=== PATIENT | female | born 1980 | race Two or more races ===

== ENCOUNTER 2023-09-22 10:47 | Emergency (ER) | payer OTHER, SELFPAY ==
[2023-09-22 11:11] VITALS: BP 186/87; PULSE 87; RESP 16; TEMP 36.6; O2SAT 100
--- NOTE | 2023-09-22 11:23 | ED.GENADULT ---
[facility] - General Adult General Chief complaint: Abdominal Pain Stated complaint: Pain pelvic area Time Seen by Provider: 09/22/23 20:09 Source: patient Mode of arrival: ambulatory History of Present Illness HPI narrative: This is a 43-year-old female who presents with persistent lower abdominal discomfort for 2 months. Patient states that her primary care physician has sent her for CT scan which did not have any acute findings and at that time she was tested for UTI and yeast infection but was negative. Her primary care doctor then referred her to her urologist who had performed a bladder sling procedure for her and at that time a pelvic exam was done without any acute findings and patient was referred for an ultrasound which was also negative. Patient has been finding strings and is worried that they are coming from the bladder sling. She denies any fevers or chills, she denies any nausea or vomiting and denies any diarrhea or constipation. Patient was also evaluated by her fusion operator and at that time there were no acute findings and she was referred back to her urologist who noted the patient had a urinary tract infection and she is currently on Macrobid. Related Data Allergies Allergy/AdvReac Type Severity Reaction Status Date / Time hydrocodone AdvReac Vomiting Verified 09/22/23 11:11 Review of Systems Review of Systems: Pertinent positives and negatives as stated in [facility] Past Medical History Source: nursing notes reviewed Social History Social History Advance Directives: No Advance Directives Information Provided: No Physical Exam ED Vital Signs: Vital Signs - 24 hr 09/22/23 11:11 09/22/23 20:00 Temperature 98 F 98.8 F Pulse Rate 87 100 Respiratory Rate 16 18 Blood Pressure 186/87 H 159/99 H Pulse Oximetry 100 100 Oxygen Delivery Method Room Air Room Air BMI result Body Mass Index 30.0 VITAL SIGNS: Reviewed. GENERAL: Well developed, well nourished, in no acute distress. HEAD: Normocephalic/atraumatic EYES: PERRLA, EOMI EARS: Ext canals without abnormality NOSE: Nares patent bilateral OROPHARYNX: no oral lesions noted, posterior pharynx clear NECK: Supple, no adenopathy LUNGS: Normal breath sounds. No adventitious sounds or accessory muscle use. SpO2<100> CARDIOVASCULAR: Regular rate and rhythm without noted murmurs ABDOMEN: Soft, non-tender, non-distended with bowel sounds. MUSCULOSKELETAL: No tenderness, deformities, or effusions noted on gross inspection. EXTREMITIES: No cyanosis, clubbing or edema. SKIN: Inspection of the skin reveals no rashes NEUROLOGIC: Alert and oriented x 4. Strength and sensation to light touch were grossly intact x 4. Course Course Course Narrative: This is an RME: Additional HPI, ROS, PE not included below will be deferred to primary provider. This is a 43-year-old female presenting to the emergency department for evaluation of lower abdominal pain for the last 2 months. She states that the pain has been constant. She states that she feels like there is something blocking her vagina, she has a history of a bladder prolapse with bladder sling. She has had CT scans and ultrasounds performed at [facility] but she has not had any answers. She endorses chills, otherwise no nausea, vomiting, diarrhea. She also shows me a piece of string that she found in her underwear, which she is concerned about. She has already been seen by her OBGYN. No rectal itching. Likely will need a pelvic examination for evaluation of ?prolapse Plan: Labs, UA, further ER evaluation needed Medical Decision Making Medical Decision Making [facility] Narrative: 43-year-old female with history and clinical presentation, DDX: Chronic pain may be due to back pain, will rule out infectious etiology but at this time I do not think that further imaging studies are warranted. I reviewed all investigations and hematology indices are grossly within normal limits without leukocytosis or left shift, there is no anemia or thrombocytopenia. Chemistry indices are grossly within normal limits without any demonstrated RYAN and no electrolyte or liver enzyme derangements. Urinalysis demonstrates very mild presence of blood without evidence to suggest UTI. Patient instructed to continue antibiotics as prescribed. My interpretation is that there is a possibility that this is a chronic pain that is radiating from her back and patient does describe a very demanding job requiring a significant amount of walking. She is otherwise stable and will be discharged and instructed to follow-up with her primary care doctor and her urologist. Differential Diagnosis Differential Diagnoses: The differential diagnosis associated with the presentation includes Please see the discussion above Admission/Observation Consideration of admission/observation: Escalation of care including admission/observation considered Please see the discussion above Lab Data [facility] Lab Attestation statement: I reviewed the patient's lab results. Please see the discussion above 09/22/23 12:30 09/22/23 12:30 Labs: Lab Results 09/22/23 09/22/23 Range/Units 12:30 20: WBC 10.2 (4.8-10.8) X10*3/uL RBC 4.23 (4.20-5.50) X10*6/uL Hgb 12.9 (12.0-16.0) g/dl Hct 38.6 (37.0-47.0) % MCV 91.3 (80.0-98.0) fL MCH 30.5 (27.0-33.0) pg MCHC 33.4 (31.0-35.0) g/dl RDW 12.6 (11.0-16.0) % Plt Count 361 (160-400) X10*3/uL MPV 9.1 L (9.4-12.3) fL Immature Gran % (Auto) 0.3 (0.0-0.4) % Neut % (Auto) 56.6 (45-73) % Lymph % (Auto) 34.6 (20-40) % [place] % (Auto) 5.4 (2-11) % Eos % (Auto) 2.5 (0-4) % Baso % (Auto) 0.6 (0-2) % Lymph # (Auto) 3.5 (1.2-4.9) X10*3/uL [place] # (Auto) 0.6 (0.1-1.2) X10*3/uL Eos # (Auto) 0.3 (0.0-0.4) X10*3/uL Baso # (Auto) 0.1 (0.0-0.2) X10*3/uL Abs Immat Gran (auto) 0.03 (0.00-0.03) X10*3/uL Absolute Neuts (auto) 5.8 (2.0-8.3) x10*3/uL Absolute Nucleated RBC 0.000 (0.0-0.012) X10*3/uL Nucleated RBC % (auto) 0.0 (0.0-0.2) /100WBC Sodium 140 (135-145) mmol/L Potassium 3.4 (3.3-5.1) mmol/L Chloride 106 (96-108) mmol/L Carbon Dioxide 22 (22-29) mmol/L Anion Gap 15 (12-20) BUN 14 (9-16) mg/dL Creatinine 0.80 (0.5-1.4) mg/dL Estim Creat Clear Calc 103.8 Estimated GFR > 60 Random Glucose 94 (60-115) mg/dL Calcium 10.1 (8.4-10.2) mg/dL Total Bilirubin 0.3 (0.0-1.0) mg/dL Direct Bilirubin 0.1 (0.0-0.5) mg/dL AST 21 (5-31) U/L ALT 24 (0-31) U/L Alkaline Phosphatase 97 (39-117) U/L Total Protein 8.9 H (6.5-8.0) g/dL Albumin 5.1 H (3.5-5.0) g/dL Lipase 37 (8-78) U/L Beta HCG, Quant < 2 mIU/mL Urine Color Yellow Urine Appearance Clear Urine pH 6.0 (5.0-9.0) Ur Specific [place] 1.020 (1.005-1.025) Urine Protein Negative (Neg-Trace) mg/dL Urine Glucose (UA) Negative (Negative) mg/dL Urine Ketones Negative (Negative) mg/dL Urine Blood Trace H (Negative) Urine Nitrite Negative (Negative) Ur Leukocyte Esterase Negative (Negative) Urine RBC 3-5 H (0-2) /HPF Urine WBC 0-5 (0-5) /HPF Ur Squamous Epith Cells 0-2 (0-2) /HPF Urine Bacteria Trace (None Seen) Hyaline Casts 0-2 (0-2) /LPF Discharge Plan Discharge Clinical Impression: Chronic abdominal pain Patient Disposition: Home, Self-Care Instructions: Abdominal Pain (ED), Chronic Pain (ED) Additional Instructions: 1. Resume all home medications and complete the entire course of antibiotics as prescribed. 2. Recommend follow-up with your primary care doctor. Return to the ER if you experience any worsening of your symptoms or new symptoms such as fever, chills, nausea, vomiting. Referrals: Vimal Alvarez MD [Primary Care Provider] -
[2023-09-22 12:39] LABS: MANUAL DIFF FLAG NO
[2023-09-22 12:43] LABS: Basophils Absolute Auto 0.1 X10*3/uL (0.0-0.2); Basophils Percent Auto 0.6 % (0-2); Eosinophils Absolute Auto 0.3 X10*3/uL (0.0-0.4); Eosinophils Percent Auto 2.5 % (0-4); Hematocrit 38.6 % (37.0-47.0); Hemoglobin 12.9 g/dl (12.0-16.0); Imm Gran Abs Auto 0.03 X10*3/uL (0.00-0.03); Imm Gran Pct Auto 0.3 % (0.0-0.4); Lymphocytes Absolute Auto 3.5 X10*3/uL (1.2-4.9); Lymphocytes Percent Auto 34.6 % (20-40); Mean Corpuscular HGB Conc 33.4 g/dl (31.0-35.0); Mean Corpuscular Hemoglobin 30.5 pg (27.0-33.0); Mean Corpuscular Volume 91.3 fL (80.0-98.0); Mean Platelet Volume 9.1 fL (9.4-12.3); Monocytes Absolute Auto 0.6 X10*3/uL (0.1-1.2); Monocytes Percent Auto 5.4 % (2-11); Neutrophils Absolute Auto 5.8 x10*3/uL (2.0-8.3); Neutrophils Percent Auto 56.6 % (45-73); Platelet Count 361 X10*3/uL (160-400); Red Blood Count 4.23 X10*6/uL (4.20-5.50); Red Cell Distribution Width 12.6 % (11.0-16.0); White Blood Count 10.2 X10*3/uL (4.8-10.8)
[2023-09-22 13:05] LABS: Alanine Aminotransferase 24 U/L (0-31); Albumin Level 5.1 g/dL (3.5-5.0); Alkaline Phosphatase 97 U/L (39-117); Anion Gap 15 (12-20); Aspartate Amino Transferase 21 U/L (5-31); Bilirubin Direct 0.1 mg/dL (0.0-0.5); Bilirubin Total 0.3 mg/dL (0.0-1.0); Blood Urea Nitrogen 14 mg/dL (9-16); Calcium 10.1 mg/dL (8.4-10.2); Carbon Dioxide 22 mmol/L (22-29); Chloride 106 mmol/L (96-108); Creatinine Clr Calc Pharmacy 103.8; Estimated Glomerular Filt Rate > 60; Glucose Random 94 mg/dL (60-115); Lipase 37 U/L (8-78); Potassium 3.4 mmol/L (3.3-5.1); Sodium 140 mmol/L (135-145); Total Protein 8.9 g/dL (6.5-8.0)
[2023-09-22 13:09] LABS: HCG Quantitative < 2 mIU/mL
[2023-09-22 20:00] VITALS: BP 159/99; PULSE 100; RESP 18; TEMP 37.1; O2SAT 100
[2023-09-22 20:32] LABS: Appearance Urine Clear; Color Urine Yellow; Glucose Urine UA Negative (Negative); Leukocyte Esterase Urine Negative (Negative); Nitrite Urine Negative (Negative); UMIC TRIGGER UACC YES; Urine Blood Trace (Negative); Urine Ketones Negative (Negative); Urine Protein Negative (Neg-Trace)
[2023-09-22 20:40] LABS: Bacteria Urine Trace (None Seen); Hyaline Casts Urine 0-2 /LPF (0-2); Squamous Epithelial Cell Urine 0-2 /HPF (0-2); WBC Urine 0-5 /HPF (0-5)
--- OUTSIDE RECORDS SUMMARY | 2023-09-22 21:32 | XMS_ITS | Continuity of Care Document ---
Author Name Unknown Organization [facility] [facility] [facility] Address [address], [address] [place] [address]- Care Team Providers Care J2Ee Application Developer Name Role Phone Audra March Primary Care Physician [place] [facility] [place]s): 06/18/21 - 07/18/21 [facility] [address], [address] [place] [address]- Allergies, Adverse Reactions, Alerts Substance Reaction Severity Status Percocet nausea/ vomiting Active Vicodin nausea/ vomiting Active Medications citalopram 10 mg oral tablet 10 mg, 1, tablet, By Mouth, Daily at bedtime, Takes 5 days before menses then an additional 6 days,# 30 tablet, Refills 0, Maintenance, 05/26/21 19:12:00 EDT, Partial fill upon patient request if the prescription is for a schedule II opioid drug. Start Date: 05/26/21 Status: Ordered Unisom 25 mg oral tablet 1 tablet = 25 mg, By Mouth, Daily at bedtime, # 16 tablet, 0 Refills, Maintenance, 05/26/21 19:13:00 EDT, Tablet, Partial fill upon patient request if the prescription is for a schedule II opioid drug. Start Date: 05/26/21 Status: Ordered Social History Social History Type Response Smoking Status Former smoker, quit more than 30 days ago entered on: 01/27/21 Sex
--- OUTSIDE RECORDS SUMMARY | 2023-09-22 21:32 | XMS_ITS | Continuity of Care Document ---
Author Name Unknown Organization [facility] ter Address [address] [place] [address]- Care Team Providers Care Finished Garment Inspector Name Role Phone Not on Staff, PCP Primary Care Physician Unavail able Encounter [facility] Date(s): 04/20/20 - 04/20/[address] [address]- [facility] Encounter Diagnosis COVID-19(Final) - 04/20/20 Discharge Disposition: A-D/C Home Attending Physician: Sowmya Corey DO Admitting Physician: Sowmya Corey DO Referring Physician: Not on Staff, Referring MD Allergies, Adverse Reactions, Alerts Substance Reaction Severity Status penicillin Active Percocet Active Vicodin Active Results Radiology Reports * Exam Date Time Procedure Performing Provider Status 04/20/20 8:54 PM Chest Portable Willa Escobar; Keanu (Ve rified) Notes: (Chest Portable) Reason For Exam: Shortness of Breath RESULT: Chest Portable Chest Portable AP upright at 2039 hours Reason: Shortness of Breath; Clinical Question(s): Pneumonia; Hx of Present Illness: pt reports 2 weeks of intermittent GARSIA, chest pain, SOB and loose stool. COMPARISON: None. FINDINGS: LINES AND TUBES: None. LUNGS AND PLEURA: Clear lungs. Normal pulmonary vascularity. No pleural effusion. No pneumothorax. HEART, MEDIASTINUM AND TOBY: Heart is normal in size. Normal mediastinal and hilar contour. BONES AND SOFT TISSUES: No acute abnormality. IMPRESSION: No acute abnormality. WSN: [id number] Ordering Physician: Sowmya Corey Dictated By: Mat Anand DO Dictated Date/Time: 04/20/20 9:02 pm Reviewed By: Mat Anand DO Signed By: Mat Anand DO Signed Date/Time: 04/20/20 9:02 pm Transcribed By: JODIE Transcribed Date/Time: 04/20/20 9:02 pm Vital Signs Most recent to oldest [Reference Range]: 1 2 Oxygen Saturation [94-100 %] 99 % 1 (04/20/20 9:47 PM) 99 % (04/20/20 8:18 PM) Pulse Rate [55-90 bpm] 78 bpm (04/20/20 9:47 PM) 83 bpm (04/20/20 8:18 PM) Blood Pressure [90-138/55-84 mm Hg] 148/ 99mm Hg *H* (04/20/20 8:18 PM) Respiratory Rate [16-30 br/min] 18 br/mi n (04/20/20 9:47 PM) 18 br/min (04/20/20 8:18 PM) Temperature [96.8-100.4 DegF] 98.6 DegF (04/20/20 8:18 PM) Mode of Delivery (Oxygen) Room air (04/20/20 9:47 PM) Room air (04/20/20 8:18 PM) Blood pressure sites Arm, left (04/20/20 8:18 PM) Temperature Route Oral (04/20/20 8:18 PM) 1Result Comment: with ambulation trial
--- OUTSIDE RECORDS SUMMARY | 2023-09-22 21:32 | XMS_ITS | Continuity of Care Document ---
Author Name Unknown Organization [email or web address] Address [address], [address] [place] [address]- Care Team Providers Care Head Of Sales Promotion Name Role Phone Audra March Primary Care Physician En[place] [facility] [place](s): 08/02/23 - 09/01/23 [email or web address] [address], [address] [place] [address]- Attending Physician: Kris Gonsalves Admitting Physician: Kris Gonsalves Referring Physician: AdmtrKris Allergies, Adverse Reactions, Alerts Substance Reaction Severity Status Vicodin nausea/ vomiting Active Percocet nausea/ vomiting Active Medications citalopram 10 mg oral tablet 10 mg, 1, tablet, By Mouth, Daily at bedtime, Takes 5 days before menses then an additional 6 days,# 30 tablet, Refills 0, Maintenance, 05/26/21 19:12:00 EDT, Partial fill upon patient request if the prescription is for a schedule II opioid drug. Start Date: 05/26/21 Status: Ordered ondansetron 4 mg oral tablet, disintegrating 1 tablet = 4 mg, By Mouth, Every 8 hours, PRN as needed for nausea/vomiting, # 10 tablet, 0 Refills, Maintenance, 08/25/22 4:18:00 EST, DIS Tablet, [id number], Partial fill upon patient request, 173, cm, 06/23/21 11:16:00 EDT, Height, 90, kg,... Start Date: 08/25/22 Status: Ordered Unisom 25 mg oral tablet [...] 30 days ago entered on: 01/27/21 Sex Patient Care team information Care Team Personnel Name: Audra March Position: S Associate Professional Member Role: PCP Address: Address: [address] [place] [address], [address] [place] [address]- Care Team Related Persons Name: TASH KEY Address: [place] [address] Name: ARELY KEY Address: home [address] [place] [address]
--- OUTSIDE RECORDS SUMMARY | 2023-09-22 21:32 | XMS_ITS | Continuity of Care Document ---
Author Name Unknown Organization [facility] Address [address], [address] [place] [address]- Care Team Providers Care Clinical Assoc Name Role Phone Audra March Primary Care Physician [place] [facility] [place] 08/27/20 - 11/05/20 [facility] [address], [address] [place] [address]- Attending Physician: La Trinh MD Admitting Physician: La Trinh MD Referring Physician: Audra March Allergies, Adverse Reactions, Alerts Substance Reaction Severity Status penicillin Active Percocet Active Vicodin Active
--- OUTSIDE RECORDS SUMMARY | 2023-09-22 21:32 | XMS_ITS | Continuity of Care Document ---
Author Name Unknown Organization [facility] Address [address], [address] [place] [address]- Care Team Providers Care Finish Mill Operator Name Role Phone Audra March Primary Care Physician Encounter [facility] [place] Date(s): 06/11/21 - 07/11/21 [facility] [address], [address] [place] [address]- Allergies, Adverse Reactions, Alerts Substance Reaction Severity [...]
--- OUTSIDE RECORDS SUMMARY | 2023-09-22 21:32 | XMS_ITS | Continuity of Care Document ---
Author Name Unknown Organization [facility] [employer] Address [address], [address] [place] [address]- Care Team Providers Care Commissary Assistant Name Role Phone Audra March Primary Care Physician [id number] Date(s[facility] 09/16/21 - 01/14/22 [facility] [address], [address] [place] [address]- Attending Physician: Brittany Gutiérrez MD Admitting Physician: Brittany Gutiérrez MD Referring Physician: Audra March Allergies, Adverse [...]
--- OUTSIDE RECORDS SUMMARY | 2023-09-22 21:32 | XMS_ITS | Continuity of Care Document ---
Author Name Unknown Organization [facility] Address [address], [address] [place] [address]- Care Team Providers Care Professor Of Theology Name Role Phone Audra March Primary Care Physician [phone] Encounter [facility] [place] Date(s): 10/06/20 - 11/05/20 [facility] [employer] [address], [address] [place], [place] [address] Attending Physician: AdmKris birch Admitting Physician: Admtr, Ar8 Referring Physician: Admtr, Ar8 Allergies, Adverse Reactions, Alerts Substance Reaction Severity Status penicillin Active Percocet Active Vicodin Active
--- OUTSIDE RECORDS SUMMARY | 2023-09-22 21:33 | XMS_ITS | Continuity of Care Document ---
Author Name Unknown Organization [facility] [facility] Address [address], [address] [place] [address]- Care Team Providers Care Typing Checker Name Role Phone Audra March Primary Care Physician [id number] Date(s): 12/15/21 - 01/14/22 [facility] [address], [address] [place], [place] [address] Attending Physician: Kris Gonsalves Admitting Physician: AdmKris birch Referring Physician: AdmtrKris Allergies, Adverse Reactions, Alerts [...]
--- OUTSIDE RECORDS SUMMARY | 2023-09-22 21:33 | XMS_ITS | Continuity of Care Document ---
Author Name Unknown Organization [facility] Address [address], [address] [place] [address]- Care Team Providers Care Brake [address] Freight Name Role Phone Audra March Primary Care Physician [place] [facility] [place] 07[place]23 - 08/28/23 [facility] [address], [address] [place], [place] [address] Allergies, Adverse Reactions, Alerts Substance Reaction Severity [...] Refills, Maintenance, 08/25/22 4:18:00 EST, DIS Tablet, [id number], Partial fill upon patient request, 173, [...] Associate Professional Member Role: PCP Address: Address: [address] [place] [address], [address] [place] [address]- Care Team Related Persons Name: TASH KEY Address: [place] [address] Name: ARELY KEY Address: home [address] [place] [address]
--- OUTSIDE RECORDS SUMMARY | 2023-09-22 21:33 | XMS_ITS | Continuity of Care Document ---
Author Name Unknown Organization [facility] ter Address [address] [place] [address]- Care Team Providers Care Timber Setter Name Role Phone Audra March Primary Care Physician [phone] Encounter [facility] Date(s): 08/24/22 - 08/25/[address] [address]- Encounter Diagnosis Headache(Final) - 08/25/22 Discharge Disposition: A-D/C Home Attending Physician: Scott Gomez MD Admitting Physician: Scott Gomez MD Referring Physician: Not on Staff, Referring MD [...] opioid drug. Start Date: 05/26/21 Status: Ordered meclizine 25 mg oral tablet 1 tablet = 25 mg, By Mouth, 3 times a day, PRN for dizziness, for 14 days, # 20 tablet, 0 Refills, Acute 09/08/22 4:18:00 EST, 08/25/22 4:18:00 EST, Tablet, [id number], Partial fill upon patient request if the prescription is for a schedule II... Start Date: 08/25/22 Stop Date: 09/08/22 Status: Ordered ondansetron 4 mg oral tablet, [...] opioid drug. Start Date: 05/26/21 Status: Ordered Results Radiology Reports * Exam Date Time Procedure Performing Provider Status 08/25/22 3:[address] Head/Brain W/O Contrast Stupak , Ol eg; Auth (Verified) Notes: (CT Head/Brain W/O Contrast) Reason For Exam: worsening R sided headaches, dizziness;Headache(s) RESULT: CT Head/Brain W/O Contrast CT Head/Brain W/O Contrast INDICATION: Headache. TECHNIQUE: Noncontrast head CT using axial technique and reconstructed in axial and coronal planes.Iterative reconstruction techniques are used to optimize dose and image quality. CTDIvol Head: 45.90 mGy, DLP Head: 772 mGy*cm. COMPARISON: None. FINDINGS: Accounting Administrator view findings, lines and tubes: None. BRAIN AND EXTRA-AXIAL SPACES: No parenchymal hemorrhage, midline shift, or mass effect. Becker-white matter differentiation is wellpreserved. No acute infarct. Ventricles, sulci, and basilar cisterns are normal. No white matter lesions. No subarachnoid hemorrhage. No subdural or epidural collection. CALVARIUM, SKULL BASE, AND SOFT TISSUES: No fractures or suspicious bony lesions. The paranasal sinuses and mastoid air cells are clear. Visualized orbits and globes are intact. The extracranial soft tissues are unremarkable. IMPRESSION: No acute intracranial abnormality. I have personally reviewed the images and I agree with this report. WSN: [id number] Ordering Physician: Savannah Liao Dictated By: Gunnar Morales MD Dictated Date/Time: 08/25/22 7:13 am Reviewed By: Vince Martínez MD Signed By: Vince Martínez MD Signed Date/Time: 08/25/22 7:18 am Transcribed By: JODIE Transcribed Date/Time: 08/25/22 3:17 am Vital Signs Most recent to oldest [Reference Range]: 1 2 3 Oxygen Saturation [94-100 %] 100 % (08/25/22 3:29 AM) 100 % (08/25/22 12:04 AM) 100 % (08/24/22 9:44 PM) Pulse Rate [55-90 bpm] 61 bpm (08/25/22 3:29 AM) 65 bpm (08/25/22 12:04 AM) 70 bpm (08/24/22 9:44 PM) Blood Pressure [90-138/55-84 mm Hg] 137/76mm Hg (08/25/22 3:29 AM) 138/80mm Hg (08/25/22 12:04 AM) 150/98mm Hg *H* (08/24/22 9:44 PM) Respiratory Rate [16-30 br/min] 16 br/min (08/25/22 3:29 AM) 22 br/min (08/24/22 9:44 PM) Temperature [96.8-100.4 DegF] 98.3 DegF (08/25/22 3:29 AM) 97.8 DegF (08/25/22 12:04 AM) 98.4 DegF (08/24/22 9:44 PM) Mode of Delivery (Oxygen) Room air (08/25/22 3:29 AM) Room air (08/25/22 12:04 AM) Room air (08/24/22 9:44 PM) Blood pressure sites Arm, right (08/25/22 3:29 AM) Arm, right (08/25/22 12:04 AM) Arm, right (08/24/22 9:44 PM) Temperature Route Oral (08/25/22 3:29 AM) Oral (08/25/22 12:04 AM) Oral (08/24/22 9:44 PM) Social History Social History Type Response Smoking Status Former smoker, quit more than 30 days ago entered on: 01/27/21 Sex EKG study * Event Display: ECG 12-Lead Authored Date: Please click on pdf link to open report * Event Display: ECG 12-Lead Authored Date: Ventricular Rate: 61 BPM Atrial Rate: 61 BPM P-R Interval: 146 ms QRS Duration: 84 ms Q-T Interval: 426 ms QTC Calculation(Bazett): 428 ms P Palco: 31 degrees R Palco: 52 degrees T Palco: 34 degrees Normal sinus rhythm Normal ECG When compared with ECG of 24-AUG-2022 22:18, MANUAL COMPARISON REQUIRED, DATA IS UNCONFIRMED Confirmed by FOX HARTLEY MD ([id number]) on 08/25/2022 4:02:00 PM [place]: FOX HARTLEY MD * Event Display: EKG Authored Date: [id number] * Event Display: ECG 12-Lead Authored Date: [id number] Please click on pdf link to open report * Event Display: ECG 12-Lead Authored Date: [id number] Ventricular Rate: 66 BPM Atrial Rate: 66 BPM P-R Interval: 140 ms QRS Duration: 78 ms Q-T Interval: 398 ms QTC Calculation(Bazett): 417 ms P Palco: 24 degrees R Palco: 40 degrees T Palco: 35 degrees Normal sinus rhythm Normal ECG When compared with ECG of 20-APR-2020 20:39, No significant change was found Confirmed by IRIS ULLOA MD ([id number]) on 08/25/2022 10:06:19 AM [place]: IRIS ULLOA MD Note * Savannah Laio DO: OMAR Event Display: Patient Education Leaflets Authored Date: [id number] Dizziness (Uncertain Cause) ?? [id number] Dizziness (Uncertain Cause) Dizziness is a common symptom. It may be described as lightheadedness, spinning, or feeling like you are going to faint. Dizziness can have many causes. Tell the healthcare provider about: ??? All medicines you take, including prescription, [id number], herbs, and supplements ??? Any other symptoms you have ??? Any health problems you are being treated for ??? Any past major health problems you've had, such as a heart attack, balance issues, hearing problems, or blood pressure problems ??? Anything that causes the dizziness to get worse or better Today's exam did not show an exact cause for your dizziness .??Other tests may be needed. Follow upwith your healthcare provider. Home care ??? Dizziness that occurs with sudden standing may be a sign of mild dehydration. Drink extra fluids for the next few days. ??? If you recently started a new medicine, stopped a medicine, or had the dose of a current medicine changed,??talk with the prescribing healthcare provider. Your medicine plan may need adjustment. ??? If dizziness lasts more than a few seconds, sit or lie down until it passes. This may help prevent injury in case you pass out. Get up slowly when you feel better. ??? Don't drive or use power tools or dangerous equipment until you have had no dizziness for at least 48 hours. ?? Follow-up care Follow up with your healthcare provider for further evaluation in the next 7 days, or as advised. ?? When to get medical advice Call your healthcare provider for any of the following: ??? Worsening of symptoms or new symptoms ??? Repeated vomiting ??? Headache ??? Vision or hearing changes Call 911 Call 911, right away if any of these occur: ??? Chest, arm, neck, back, or jaw pain ??? Weakness ofan arm or leg or one side of the face ??? Vomit or stool that's black or red ??? Shortness of breath ??? Feeling that your heart is fluttering or beating fast or hard (palpitations) ??? Passing out or seizure ??? Trouble walking or speaking ?? Last Reviewed Date: 2021 ?? [id number] [employer]. All rights reserved. This information is not intended as a substitute for professional medical care. Always follow your healthcare professional's instructions. ?? * Savannah Liao DO: PERFORM Event Display: Patient Education Leaflets Authored Date: [id number] Unspecified Headache ?? [id number] Headache, Unspecified A number of things can cause headaches. The cause of your headache isn???t clear. But it doesn???t seem to be a sign of any serious illness. Headache affects almost everyone at some time. It's the most common reason people miss days from work or school. You could have a tension headache or a migraine headache. Stress can cause a tension headache. This can happen if you tense the muscles of your shoulders, neck, and scalp without knowing it. If this stress lasts long enough, you may develop a tension headache. It's not clear why migraines occur, but certain things called triggers can raise the risk of having a migraine attack. Migraine triggers may include emotional stress or depression, or by hormone changes during the menstrual cycle. Other triggers include control pills and other medicines, alcohol or caffeine, foods with tyramine such as aged cheese or wine, eyestrain, weather changes, missed meals, and lack of sleep or oversleeping. Other causes of headache include: ??? Viral illness with high fever ??? Head injury with concussion ??? Sinus, ear, or throat infection ??? Dental pain and jaw joint (TMJ) pain More serious but less common causes of headache include stroke, brain hemorrhage, brain tumor, meningitis, and encephalitis. Home care Follow these tips when taking care of yourself at home: ??? Don???t drive yourself home if you were given pain medicine for your headache. Instead, have someone else drive you home. Try to sleep when you get home. You should feel much better when you wakeup. ??? Apply heat to the back of your neck to ease a neck muscle spasm. Take care of a migraine headache by putting an ice pack on your forehead or at the base of your skull. ??? If you have nausea or vomiting, eat a light diet until your headache eases. ??? If you have a migraine headache, use sunglasses when in the daylight or around bright indoor lighting until your symptoms get better. Bright glaring light can make this type of headache worse. Follow-up care Follow up with your healthcare provider, or as advised. Talk with your provider if you have frequent headaches. They can help figure out a treatment plan. By knowing the earliest signs of headache, and starting treatment right away, you may be able to stop the pain yourself. When to seek medical advice Call your healthcare provider right away??if any of these occur: ??? Your head pain suddenly gets worse after sexual intercourse or strenuous activity ??? Your head pain doesn???t get better within 24 hours ??? You aren???t able to keep liquids down (repeated vomiting) ??? Fever of 100.4??F (38??C)or higher, or as directed by your healthcare provider ??? Stiff neck ??? Extreme drowsiness, confusion, or fainting ??? Dizziness or dizziness with spinning sensation (vertigo) ??? Weakness in an armor leg or one side of your face ??? You have trouble talking or seeing Last Reviewed Date: 2020 ?? 5943-1926 [employer]. All rights reserved. This information is not intended as a substitute for professional medical care. Always follow your healthcare professional's instructions. ?? CT Head WO contrast * BHSPowerscribe , CIS S: TRANSCRIBE Gunnar Morales MD: SIGN Vince Martínez MD: VERIFY Event Display: Result: Authored Date: [id number] CT Head/Brain W/O Contrast INDICATION: Headache. TECHNIQUE: Noncontrast head CT using axial technique and reconstructed in axial and coronal planes.Iterative reconstruction techniques are used to optimize dose and image quality. CTDIvol Head: 45.90 mGy, DLP Head: 772 mGy*cm. COMPARISON: None. FINDINGS: Accounting Administrator view findings, lines and tubes: None. BRAIN AND EXTRA-AXIAL SPACES: No parenchymal hemorrhage, midline shift, or mass effect. Becker-white matter differentiation is wellpreserved. No acute infarct. Ventricles, sulci, and basilar cisterns are normal. No white matter lesions. No subarachnoid hemorrhage. No subdural or epidural collection. CALVARIUM, SKULL BASE, AND SOFT TISSUES: No fractures or suspicious bony lesions. The paranasal sinuses and mastoid air cells are clear. Visualized orbits and globes are intact. The extracranial soft tissues are unremarkable. IMPRESSION: No acute intracranial abnormality. I have personally reviewed the images and I agree with this report. WSN: [id number] Ordering Physician: Savannah Liao Dictated By: Gunnar Morales MD Dictated Date/Time: 08/25/22 7:13 am Reviewed By: Vince Martínez MD Signed By: Vince Martínez MD Signed Date/Time: 08/25/22 7:18 am Transcribed By: JODIE Transcribed Date/Time: 08/25/22 3:17 am Patient Care team information Care Team Personnel Name: Audra March Position: S Associate Professional Member Role: PCP Address: Address: [address] [place] [address], [address] [place] [address]- Name: Savannah Liao DO Position: [facility] Resident Member Role: ED Resident Address: Address: [address] [place] [address]- Name: Kim Garrett Position: [facility] ED RN W/OE and Tasks Member Role: Patient Care Provider Name: Werner Howell Position: [facility] ED TA [facility] Member Role: Supervisor Electrolytic Tinning Name: Scott Gomez MD Position: [facility] Resident Member Role: Admitting Physician Address: Address: [address] [place] [address]- Care Team Related Persons Name: TASH KEY Address: [place] [address] Name: ARELY KEY Address: home [address] [place] [address]
--- OUTSIDE RECORDS SUMMARY | 2023-09-22 21:33 | XMS_ITS | Continuity of Care Document ---
Author Name Unknown [facility] Address [address], [address] [place] [address]- Care Team Providers Care Group Activities Aide Name Role Phone Audra March Primary Care Physician Encounter [facility] Date(s): 07/21/20 - 09/27/20 [facility] [address] [place] [address]- Attending Physician: Brittany Gutiérrez MD Admitting Physician: Brittany Gutiérrez MD Referring Physician: Audra March Allergies, Adverse Reactions, Alerts Substance Reaction Severity Status penicillin Active Percocet Active Vicodin Active
--- OUTSIDE RECORDS SUMMARY | 2023-09-22 21:33 | XMS_ITS | Continuity of Care Document ---
Author Name Unknown Organization [facility] ter Address [address] [place] [address]- Care Team Providers Care 911 Emergency Dispatcher Name Role Phone Audra March Primary Care Physician [phone] Encounter [facility] Date(s): 06/08/21 - 06/08/[address] [address] Discharge Disposition: A-D/C Home Attending Physician: Brittany Gutiérrez MD Admitting Physician: Brittany Gutiérrez MD Referring Physician: Brittany Gutiérrez MD Allergies, Adverse Reactions, Alerts Substance Reaction [...] opioid drug. Start Date: 05/26/21 Status: Ordered Dilaudid 2 mg oral tablet 1 tablet = 2 mg, By Mouth, Every 4 hours, PRN as needed for pain, # 6 tablet, 0 Refills, Acute 07/10/21 8:13:00 EDT, 06/08/21 8:13:00 EDT, Tablet, [id number], Partial fill upon patient request if the prescription is for a schedule II opioid . Start Date: 06/08/21 Stop Date: 07/10/21 Status: Ordered ibuprofen 600 mg oral tablet 600 mg, 1, tablet, By Mouth, 4 times a day, PRN, # 40 tablet, Refills 0, Tot. Refills 0, Acute 07/10/21 8:14:00 EDT, for pain, 06/08/21 8:13:00 EDT, Route to Pharmacy Electronically, [id number], Partial fill upon patient request if the prescri... Start Date: 06/08/21 Stop Date: 07/10/21 Status: Ordered Tylenol 325 mg oral capsule 2 capsule = 650 mg, By Mouth, Every 4 hours, PRN as needed for pain, not to exceed 4000 mg/day, # 90 capsule, 0 Refills, Acute 07/10/21 8:14:00 EDT, 06/08/21 8:13:00 EDT, Capsule, [id number],Partial fill upon patient request if the prescripti... Start Date: 06/08/21 Stop Date: 07/10/21 Status: Ordered Unisom 25 mg oral tablet 1 tablet = 25 mg, By Mouth, Daily at bedtime, # 16 tablet, 0 Refills, Maintenance, 05/26/21 19:13:00 EDT, Tablet, Partial fill upon patient request if the prescription is for a schedule II opioid drug. Start Date: 05/26/21 Status: Ordered Vital Signs Most recent to oldest [Reference Range]: 1 2 3 Height 173 cm (06/08/21 7:07 AM) 173 cm (05/26/21 7:41 PM) Weight 88.3 kg (06/08/21 7:07 AM) 88.3 kg (05/26/21 7:41 PM) Oxygen Saturation [94-100 %] 100 % (06/08/21 9:00 AM) 99 % (06/08/21 8:45 AM) 100 % (06/08/21 8:30 AM) Pulse Rate [55-90 bpm] 76 bpm (06/08/21 7:07 AM) Body Mass Index [18.5-24.99] 29.5 *H* (06/08/21 7:07 AM) 29.5 *H* (05/26/21 7:41 PM) Blood Pressure [90-138/55-84 mm Hg] 121/64mm Hg (06/08/21 9:00 AM) 120/72mm Hg (06/08/21 8:45 AM) 120/72mm Hg (06/08/21 8:30 AM) Respiratory Rate [16-30 br/min] 14 br/min *L* (06/08/21 9:00 AM) 17 br/min (06/08/21 8:45 AM) 21 br/min (06/08/21 8:30 AM) Temperature [96.8-100.4 DegF] 98.2 DegF (06/08/21 9:15 AM) 98.8 DegF (06/08/21 8:15 AM) 97.8 DegF (06/08/21 7:07 AM) Liters per Minute 5 L/min (06/08/21 8:45 AM) 5 L/min (06/08/21 8:30 AM) 8 L/min (06/08/21 8:15 AM) Mode of Delivery (Oxygen) Room air (06/08/21 9:00 AM) Shovel mask (06/08/21 8:45 AM) Shovel mask (06/08/21 8:30 AM) Blood pressure sites Arm, right (06/08/21 9:00 AM) Arm, right (06/08/21 8:45 AM) Arm, right (06/08/21 8:30 AM) Temperature Route Temporal (06/08/21 9:15 AM) Temporal (06/08/21 8:15 AM) Temporal (06/08/21 7:07 AM) Dry Weight 88.9 kg (06/08/21 7:07 AM) 88.3 kg (05/26/21 7:41 PM) Weight Obtained Via Patient/family state d (05/26/21 7:41 PM) Dry Weight Obtained Via Standing scale (06/08/21 7:07 AM) Patient/family stated (05/26/21 7:41 PM) Social History Social History Type Response Smoking Status Former smoker, quit more than 30 days ago entered on: 01/27/21 Sex
--- OUTSIDE RECORDS SUMMARY | 2023-09-22 21:33 | XMS_ITS | Continuity of Care Document ---
Author Name Unknown Organization [facility] Address [address], [address] [place] [address]- Care Team Providers Care Electrical Project Engineer Name Role Phone Audra March Primary Care Physician [phone] [facility] [facility] [place]s): 08/28/20 - 09/27/[facility] [address] [place], [place] [address] Attending Physician: Kris Gonsalves Admitting Physician: AdmtrKris Referring Physician: Admtr, Ar8 Allergies, Adverse Reactions, Alerts Substance Reaction Severity Status penicillin Active Percocet Active Vicodin Active
--- OUTSIDE RECORDS SUMMARY | 2023-09-22 21:33 | XMS_ITS | Continuity of Care Document ---
Author Name Unknown Organization [facility] Address [address], [place] [address]- Care Team Providers Care Display And Banner Designer Name Role Phone Audra March Primary Care Physician [phone] [place] [facility] [place]10[place]23 - 09/09/23 [facility] [address] [place], [place] [address] Allergies, Adverse Reactions, Alerts Substance Reaction Severity [...] Care Team Personnel Name: Audra March Position: [facility] Associate Professional Member Role: PCP Address: Address: [address] [place] [address], [address] [place] [address]- Care Team Related Persons Name: TASH KEY Address: [place] [address] Name: ARELY KEY Address: home [address] [place] [address]
--- OUTSIDE RECORDS SUMMARY | 2023-09-22 21:33 | XMS_ITS | Continuity of Care Document ---
Author Name Unknown Organization [facility] Address [address], [address] [place] [address]- Care Team Providers Care Freight Receiver Name Role Phone Audra March Primary Care Physician Encounter [facility] Date(s): 06/08/21 - 07/08/21 [facility] [address] [place] [address]- Allergies, Adverse Reactions, Alerts Substance Reaction Severity [...] 07/10/21 8:13:00 EDT, 06/08/21 8:13:00 EDT, Tablet, [facility]/pharmacy #[id number], Partial fill upon patient request if the prescription is for a schedule II opioid . Start Date: 06/08/21 Stop Date: 07/10/21 Status: Ordered ibuprofen 600 mg oral tablet 600 mg, 1, tablet, By Mouth, 4 times a day, PRN, # 40 tablet, Refills 0, Tot. Refills 0, Acute 07/10/21 8:14:00 EDT, for pain, 06/08/21 8:13:00 EDT, Route to Pharmacy Electronically, [facility]/pharmacy #[id number], Partial fill upon patient request if the prescri... Start Date: 06/08/21 Stop Date: 07/10/21 Status: Ordered Tylenol 325 mg oral capsule 2 capsule = 650 mg, By Mouth, Every 4 hours, PRN as needed for pain, not to exceed 4000 mg/day, # 90 capsule, 0 Refills, Acute 07/10/21 8:14:00 EDT, 06/08/21 8:13:00 EDT, Capsule, [facility]/pharmacy #[id number],Partial fill upon patient request if the [...]
[2023-09-22] MEDS: Ibuprofen 400 MG TABLET PO (22:32)
[2023-09-22] MEDS: Acetaminophen 325 MG TABLET 975 MG PO (22:32)
== END 2023-09-22 23:04 | disposition home or self-care (01) ==
PROVIDERS: Physician Assistant Medical; Emergency Provider Student in an Organized Health Care Education/Training Program; PCP Internal Medicine
DX: G89.29 Other chronic pain (principal); R10.2 Pelvic and perineal pain
CPT/HCPCS: 36415; 80048; 80076; 81001; 83690; 84702; 85025; 99283; 99284